=== PATIENT | female | born 1990 | race American Indian/Alaskan Native ===

== ENCOUNTER 2018-02-12 12:59 | Emergency (ER) | payer SELFPAY ==
[2018-02-12 13:09] VITALS: BP 106/73
[2018-02-12 14:13] LABS: Bacteria,Urine 1+ /HPF (Negative); Bilirubin,Urine NEG (Negative); Blood,Urine SM (Negative); Color,Urine Yellow (Yellow); HCG Qualitative,Urine Positive (Negative); Mucus,Urine FEW /HPF; Protein,Urine <15 mg/dL mg/dL (Negative); Urobilinogen,Urine < 2.0 mg/dL (<2.0)
--- NOTE | 2018-02-12 15:27 | Emergency Department Report ---
ED Female HPI - General Chief complaint: Urogenital-Female Stated complaint: PELVIC PAIN/NAUSEA/STOMACH PAIN Time Seen by Provider: 02/12/18 15:18 Source: patient Mode of arrival: Ambulatory Limitations: No Limitations - History of Present Illness Initial comments: Ms Osman is a healthy 27 yo female who presents with pelvic pain for 3-4 days. She thinks she may be . Complaint: pelvic pain -: Gradual, days(s) (3-4) Severity: mild Quality: cramping Consistency: intermittent Improves with: none Worsens with: none Last Menstrual Period: 01/02/18 EDC: 10/09/18 - Related Data : 4 Para: 2 A: 1 Allergies Allergy/AdvReac Type Severity Reaction Status Date / Time No Known Allergies Allergy Unverified 02/12/18 13:10 ED Review of Systems ROS: Stated complaint: PELVIC PAIN/NAUSEA/STOMACH PAIN Other details as noted in HPI Comment: All other systems reviewed and negative Constitutional: denies: fever, malaise Respiratory: denies: cough Cardiovascular: denies: chest pain ED Past Medical Hx - Past Medical History Previous Medical History?: No Hx Sickle Cell Disease: Yes - Surgical History Past Surgical History?: Yes Additional Surgical History: RT FEMUR FX REPAIR - Social History Smoking Status: Never Smoker Substance Use Type: None ED Physical Exam - General Limitations: No Limitations General appearance: alert, in no apparent distress - Head Head exam: Present: atraumatic, normocephalic - Eye Eye exam: Present: normal appearance - ENT ENT exam: Present: mucous membranes moist - Neck Neck exam: Present: normal inspection. Absent: tenderness, meningismus - Respiratory Respiratory exam: Present: normal lung sounds bilaterally. Absent: respiratory distress, wheezes, rales, rhonchi - Cardiovascular Cardiovascular Exam: Present: regular rate, normal rhythm, normal heart sounds. Absent: bradycardia, tachycardia, systolic murmur, diastolic murmur, rubs, gallop - GI/Abdominal GI/Abdominal exam: Present: soft, normal bowel sounds. Absent: distended, tenderness, guarding, rebound - Extremities Exam Extremities exam: Present: normal inspection - Back Exam Back exam: Present: normal inspection - Neurological Exam Neurological exam: Present: alert, oriented X3 - Psychiatric Psychiatric exam: Present: normal affect, normal mood - Skin Skin exam: Present: warm, dry, intact, normal color. Absent: rash ED Course Vital Signs 02/12/18 13:05 Temperature 98.8 F Pulse Rate 103 H Respiratory 20 Rate Blood Pressure 106/73 O2 Sat by Pulse 99 Oximetry ED Medical Decision Making - Medical Decision Making Ms. Osman has new , 5 weeks 6 days according to LMP. No signs of peritonitis to indicate acute inflammatory pathology such as appendicitis. NO fever, vaginal discharge or severe pain to indicate PID. Ms. Osman declined ultrasound and lab work. Low risk for ectopic . SHe was given precautions. She currently has minimal pain. SHe prefers to f/u with her personal manager of international. Critical care attestation.: If time is entered above; I have spent that time in minutes in the direct care of this critically ill patient, excluding procedure time. ED Disposition Clinical Impression: Disposition: DC-01 TO HOME OR SELFCARE Is pt being admited?: No Does the pt Need Aspirin: No Condition: Stable Instructions: (ED) Referrals: PRIMARY CAREMD [Primary Care Provider] - 3-5 Days
== END 2018-02-12 16:13 | disposition home or self-care (01) ==
LOC: ED 12:59
DX: O26.891 Other specified pregnancy related conditions, first trimester (principal); O99.011 Anemia complicating pregnancy, first trimester; D57.80 Other sickle-cell disorders without crisis; Z3A.01 Less than 8 weeks gestation of pregnancy
CPT/HCPCS: 81001; 81025; 99283

== ENCOUNTER 2018-08-18 19:23 | Emergency (ER) | payer MEDICAID, OTHER ==
[2018-08-18 19:35] VITALS: BP 107/72
[2018-08-18] MEDS ORDERED: BENADRYL PO ONE ×2 (20:01→20:05)
--- NOTE | 2018-08-18 21:50 | Emergency Department Report ---
ED Rash HPI - HPI Chief Complaint: Skin Rash Stated Complaint: OUTBREAK OVER BODY Time Seen by Provider: 08/18/18 21:19 Duration: 1 Day Location: Upper Extremities, Lower Extremities, Other Suspected Cause: Unknown (possible insecticide spray.2 fumigate the house of a client) Rash Symptoms: Yes Itching, No Tongue/Oral Swelling, No Breathing Difficulties, No Choking Sensation, No Wheezing/Dyspnea, No Peeling, No Blistering, No Fever, No Lightheaded, No Malaise, No Myalgias Severity: moderate ED Review of Systems ROS: Stated complaint: OUTBREAK OVER BODY Other details as noted in HPI Constitutional: denies: chills, fever Eyes: denies: eye pain, eye discharge, vision change ENT: denies: ear pain, throat pain Respiratory: denies: cough, shortness of breath, wheezing Cardiovascular: denies: chest pain, palpitations Endocrine: no symptoms reported Gastrointestinal: denies: abdominal pain, nausea, diarrhea Genitourinary: denies: urgency, dysuria, discharge Musculoskeletal: denies: back pain, joint swelling, arthralgia Skin: rash. denies: lesions Neurological: denies: headache, weakness, paresthesias Psychiatric: denies: anxiety, depression Hematological/Lymphatic: denies: easy bleeding, easy bruising ED Past Medical Hx - Past Medical History Previous Medical History?: Yes Hx Sickle Cell Disease: Yes (trait) - Surgical History Past Surgical History?: Yes Additional Surgical History: RT FEMUR FX REPAIR, Epigastric Herhia repair - Social History Smoking Status: Never Smoker Substance Use Type: None - Medications Home Medications: Home Medications Medication Instructions Recorded Confirmed Last Taken Type Ondansetron [Zofran Odt] 4 mg PO TID PRN #20 tab.rapdis 02/12/18 Unknown Rx Dicyclomine [Bentyl] 20 mg PO QID #24 tablet 04/07/18 Unknown Rx Ondansetron [Zofran Odt] 4 mg PO Q6HR #12 tab.rapdis 04/07/18 Unknown Rx Mometasone Furoate [Elocon] 45 gm TP BID #1 cream..g. 08/18/18 Unknown Rx hydrOXYzine HCL [Atarax] 25 mg PO Q6HR PRN #20 tablet 08/18/18 Unknown Rx predniSONE [Deltasone] 50 mg PO QDAY #5 tab 08/18/18 Unknown Rx Rash Exam - Exam General: Vital signs noted. No distress. Alert and acting appropriately. HEENT: No Periorbital Edema, No Conjuctival Injection, No Chemosis, No Perioral Edema, No Tongue Edema, No Uvular Edema, No Compromised Airway, No Drooling Lungs: Yes Good Air Exchange (Normal Breath Sounds), No Wheezes, No Ronchi, No Stridor, No Cough, No Labored Respirations, No Retractions, No Use of Accessory Muscles, No Other Abnormal Lung Sounds Heart: Yes Regular, No Murmur Skin: Yes Maculopapular Rash, Yes Erythema (arms. A few areas on the legs fevers on the back) Other: Positive: Abdomen Normal, Neurologic Normal, Musculoskeletal Normal ED Course Vital Signs 08/18/18 19:34 Temperature 98.8 F Pulse Rate 103 H Respiratory 18 Rate Blood Pressure 107/72 O2 Sat by Pulse 98 Oximetry Critical care attestation.: If time is entered above; I have spent that time in minutes in the direct care of this critically ill patient, excluding procedure time. ED Disposition Clinical Impression: Dermatitis Disposition: DC-01 TO HOME OR SELFCARE Is pt being admited?: No Does the pt Need Aspirin: No Condition: Stable Instructions: Contact Dermatitis (ED) Prescriptions: hydrOXYzine HCL [Atarax] 25 mg PO Q6HR PRN #20 tablet PRN Reason: Itching predniSONE [Deltasone] 50 mg PO QDAY #5 tab Mometasone Furoate [Elocon] 45 gm TP BID #1 cream..g. Referrals: VICK ROMAN MD [Primary Care Provider] - 3-5 Days
[2018-08-18] MEDS ORDERED: DELTASONE ONE (22:04)
[2018-08-18] MEDS ORDERED: DELTASONE PO ONE (22:05)
== END 2018-08-18 22:05 | disposition home or self-care (01) ==
LOC: ED 19:23
DX: L30.9 Dermatitis, unspecified (principal); D57.3 Sickle-cell trait
CPT/HCPCS: 99282; J7512